=== PATIENT | male | born 1990 | race Caucasian/White ===

== ENCOUNTER 2016-03-07 16:15 | Emergency (ER) | payer OTHER ==
[~2016-03-07] VITALS: Ht 175.3 cm; Wt 91.5 kg
[~2016-03-07 16:15] MED LIST: HYDR-3498 PO; IBUP-1542 PO; IBUP800T25 PO; NAPR-688 PO; NO MEDS TAKEN; PSEU120T11 PO; UDROBDM PO
[2016-03-07 16:53] VITALS: Ht 175.3 cm; Wt 91.5 kg
[2016-03-07] MEDS ORDERED: LORA-441 PO (20:59)
[2016-03-07] MEDS ORDERED: LORAZEPAM 1 MG TAB PO ONE (21:00)
--- NOTE | 2016-03-07 21:13 | ERD ---
ER Documentation Chief Complaint Date/Time DATE: 03/07/16 TIME: 21:10 Chief Complaint DIZZINESS HX OF SYNCOPAL EPISODES HPI Patient has symptoms of feeling dizzy suddenly, says he feels his eyes or losing vision and he gets crampy in the left chest his body shakes he gets short of breath he fainted during a soccer game before he went to the hospital last week. Last week he went to [facility] and they told him he had anxiety. He saw his PCP 2 months ago who diagnosed him with anxiety and sent him to therapy which has not helped. He has had these symptoms on and off for 7 months. Symptoms come on suddenly. He at times has headache and nausea as well. He takes no medications. He does not actually feel stressed most of the time. ROS All systems reviewed and are negative except as per history of present illness. Medications Home Meds Active Scripts Lorazepam* (Ativan*) 0.5 Mg Tablet, 0.5 MG PO Q8H Y for ANXIETY, #10 TAB Prov:TIKI JIN DO 03/07/16 Ibuprofen* (Motrin*) 600 Mg Tab, 600 MG PO Q6H Y for PAIN AND OR ELEVATED TEMP, #30 TAB Prov:NATHANIEL CASTELLON PA-C 08/30/15 Naproxen* (Naproxen*) 500 Mg Tablet, 500 MG PO BID Y for PAIN, #20 TAB Prov:FRANCISCO JAVIER MARAVILLA DO 06/25/15 Hydrocodone Bit-Acetaminophen* ([place]*) 5-325 Mg Tab, 1 TAB PO Q6 Y for PAIN, # 7 TAB Prov:FRANCISCO JAVIER MARAVILLA DO 06/25/15 Guaifenesin-Dextromethorphan* (Robitussin* DM) 100MG/10MG/5ML Syrup, 5 ML PO Q6H Y for COUGH, #120 ML 0 Refills Prov:OLU MARCELO PA-C 04/10/15 Ibuprofen* (Motrin*) 600 Mg Tab, 600 MG PO BID, #30 TAB 0 Refills Prov:OLU MARCELO PA-C 04/10/15 Pseudoephedrine Hcl (Sudafe 12-Hour) 120 Mg Tablet.er, 120 MG PO BID Y for CONGESTION, #30 TAB.SA 0 Refills Prov:OLU MARCELO PA-C 04/10/15 Ibuprofen* (Motrin*) 800 Mg Tab, 800 MG PO Q6H Y for PAIN AND OR ELEVATED TEMP, #30 TAB Prov:ADRIANNA SCHULZ NP 12/11/14 Ibuprofen* (Motrin*) 600 Mg Tab, 600 MG PO Q6, #20 TAB Prov:SHERRILL ROSARIO MD 11/01/14 Hydrocodone Bit-Acetaminophen* ([place]*) 5-325 Mg Tab, 1 TAB PO Q6 Y for PAIN, # 14 TAB Prov:SHERRILL ROSARIO MD 11/01/14 Reported Medications [No Meds Taken] No Conflict Check 02/14/13 Allergies Allergies: Coded Allergies: No Known Allergy (Unverified , 02/14/13) PMhx/Soc History of Surgery: Yes (GALL BLADDER REMOVAL) Anesthesia Reaction: No Hx Miscellaneous Medical Probl: No Hx Alcohol Use: No Hx Substance Use: No Hx Tobacco Use: No Physical Exam Vitals Vital Signs Date Time Temp Pulse Resp B/P Pulse Ox O2 Delivery O2 Flow Rate FiO2 03/07/16 16:53 98.6 84 18 147/75 99 Physical Exam Const: [] Head: Atraumatic Eyes: Normal Conjunctiva ENT: Normal External Ears, Nose and Mouth. Neck: Full range of motion..~ No meningismus. Resp: Clear to auscultation bilaterally Cardio: Regular rate and rhythm, no murmurs Abd: Soft, non tender, non distended. Normal bowel sounds Skin: No petechiae or rashes Back: No midline or flank tenderness Ext: No cyanosis, or edema Neur: Awake and alert Psych: Normal Mood and Affect Results 24 hrs Current Medications Medications (Trade) Dose Ordered Sig/Justine Route PRN Reason Start Time Stop Time Status Last Admin Dose Admin Lorazepam (Ativan) 1 mg ONCE ONCE PO 03/07/16 21:00 03/07/16 21:01 DC 03/07/16 21:01 EKG normal sinus rhythm rate of 66 with a rightward axis no acute ST changes and normal intervals Procedures/MDM His symptoms are likely panic attacks as he has multiple complaints including dizziness chest pain shortness of breath headache nausea and the symptoms come and go and he has had it for 7 months we gave him Ativan here and will give Ativan for home. He has tried therapy and yoga which have not helped. He should see a psychiatrist. EKG was otherwise normal and not consider coronary syndrome so I doubt acute coronary syndrome or pulmonary embolism or pneumonia or pneumonitis or thoracic or abdominal aneurysm. Vital signs stable ED precautions discussed follow-up with PCP and psychiatrist. Departure Diagnosis: Primary Impression: Panic attacks Condition: Stable Patient Instructions: Understanding Panic Disorder (Panic Attack), Treating Panic Disorder (Panic Attack) with Therapy, Treating Panic Disorder with Medication, Panic Attack TIKI JIN DO Mar 07, 2016 21:13
[2016-03-07 21:21] VITALS: BP 139/78; PULSE 88; RESP 18; TEMP 98.3
== END 2016-03-07 21:26 | disposition home or self-care (01) ==
LOC: FTE 16:15
DX: F41.0 Panic disorder [episodic paroxysmal anxiety] (principal)
CPT/HCPCS: Z7502; Z7610; 93005; 99283